=== PATIENT | male | born 1975 | race Caucasian/White ===

== ENCOUNTER 2018-10-20 02:04 | Emergency (ER) | payer MEDICAID ==
[~2018-10-20] VITALS: Ht 170.2 cm; Wt 88.5 kg
[~2018-10-20 02:04] MED LIST: CEPH500 PO; HYDACE5 PO; HYDR1TAB94 PO; IBUP600 PO; LISI20 PO
== END 2018-10-20 03:02 | disposition home or self-care (01) ==
LOC: ER 02:04
DX: J02.0 Streptococcal pharyngitis (principal); Z87.891 Personal history of nicotine dependence; Z79.899 Other long term (current) drug therapy
CPT/HCPCS: 87430; 96372; 99282-25; J0561; J1100

== ENCOUNTER 2018-12-08 21:14 | Emergency (ER) | payer MEDICAID ==
[~2018-12-08] VITALS: Ht 172.7 cm; Wt 90.7 kg
[2018-12-08 22:31] LABS: BASOPHILS ABSOLUTE AUTO 0.08 K/mm3 (0.00-0.23); BASOPHILS PERCENT AUTO 1 % (0-2); EOSINOPHILS ABSOLUTE AUTO 0.61 K/mm3 (0.00-0.68); EOSINOPHILS PERCENT AUTO 4 % (0-6); Hematocrit 42.2 % (37.0-53.0); Hemoglobin 14.3 g/dL (13.5-17.5); IMMATURE GRAN ABSOLUTE AUTO 0.15 K/mm3 (0.00-0.10); IMMATURE GRAN PERCENT AUTO 1 % (0-1); LYMPHOCYTES ABSOLUTE AUTO 3.65 K/mm3 (0.84-5.20); LYMPHOCYTES PERCENT AUTO 24 % (21-46); MONOCYTES ABSOLUTE AUTO 0.85 K/mm3 (0.16-1.47); MONOCYTES PERCENT AUTO 6 % (4-13); Mean Corpuscular HGB 29.9 pg (26.0-34.0); Mean Corpuscular HGB Conc 33.9 g/dL (31.5-36.5); Mean Corpuscular Volume 88 fL (80-100); Mean Platelet Volume 10.6 fL (9.1-12.4); NEUTROPHILS ABSOLUTE AUTO 10.19 K/mm3 (1.96-9.15); NEUTROPHILS PERCENT AUTO 66 % (41-73); Platelet Count 246 K/mm3 (150-400); RDW Coefficient Variation 12.6 % (11.7-14.2); RDW Standard Deviation 41.3 fL (35.1-46.3); Red Blood Cell Count 4.79 M/mm3 (4.30-5.90); White Blood Cell Count 15.53 K/mm3 (4.00-11.30)
[2018-12-08 22:50] LABS: Alanine Aminotransfer (ALT/SGP 24 U/L (12-78); Albumin, Blood 3.3 g/dL (3.4-5.0); Albumin/Globulin Ratio 0.8 (0.8-1.8); Alk Phos 99 U/L (50-136); Anion Gap 6 mmol/L (6-16); Aspartate Aminotrans (AST/SGOT 12 U/L (12-37); Bilirubin, Total 0.7 mg/dL (0.1-1.0); Blood Urea Nitrogen 24 mg/dL (8-24); Bun/Creatinine Ratio 28.4 (12.0-20.0); CO2, Blood 30 mmol/L (21-32); Calcium, Blood 8.8 mg/dL (8.5-10.1); Chloride, Blood 103 mmol/L (98-108); Creatinine, Blood 0.84 mg/dL (0.60-1.20); Globulin, Blood 4.1 g/dL (2.2-4.0); Glomerular Filtration Rate >60 (60-); Glucose, Blood 121 mg/dL (70-99); Potassium, Blood 3.8 mmol/L (3.5-5.5); Sodium, Blood 139 mmol/L (136-145); Total Protein, Blood 7.4 g/dL (6.4-8.2)
[2018-12-08] MEDS ORDERED: Augmentin 875-1 EACH PO (23:44)
== END 2018-12-09 00:44 | disposition home or self-care (01) ==
LOC: ER 21:14
PROVIDERS: Physician Assistant
DX: J36 Peritonsillar abscess (principal); I10 Essential (primary) hypertension; Z79.899 Other long term (current) drug therapy
CPT/HCPCS: 10160; 36415; 70491; 80053; 85025; 87081; 87430; 96365-59; 96375-59; 99284-25; A9270-GY; J0295; J1100; J1170; J1885; J2405; Q9967

== ENCOUNTER 2021-04-24 20:34 | Emergency (ER) | payer SELFPAY ==
[~2021-04-24] VITALS: Ht 170.2 cm; Wt 99.8 kg
[~2021-04-24 20:34] MED LIST changes: +Augmentin 875-1 EACH PO
== END 2021-04-24 22:08 | disposition home or self-care (01) ==
LOC: ER 20:34
DX: K42.9 Umbilical hernia without obstruction or gangrene (principal); I10 Essential (primary) hypertension; Z79.899 Other long term (current) drug therapy
CPT/HCPCS: 76857; 99283-25

== ENCOUNTER 2021-04-27 12:17 | Inpatient (IN) | payer SELFPAY ==
[~2021-04-27] VITALS: Ht 170.2 cm; Wt 99.8 kg
[2021-04-27 12:53] LABS: BASOPHILS ABSOLUTE AUTO 0.08 K/mm3 (0.00-0.23); BASOPHILS PERCENT AUTO 1 % (0-2); EOSINOPHILS PERCENT AUTO 3 % (0-6); Hematocrit 48.5 % (37.0-53.0); Hemoglobin 16.7 g/dL (13.5-17.5); IMMATURE GRAN PERCENT AUTO 1 % (0-1); LYMPHOCYTES ABSOLUTE AUTO 3.11 K/mm3 (0.84-5.20); LYMPHOCYTES PERCENT AUTO 26 % (21-46); MONOCYTES ABSOLUTE AUTO 0.43 K/mm3 (0.16-1.47); MONOCYTES PERCENT AUTO 4 % (4-13); Mean Corpuscular HGB 29.1 pg (26.0-34.0); Mean Corpuscular HGB Conc 34.4 g/dL (31.5-36.5); Mean Corpuscular Volume 85 fL (80-100); Mean Platelet Volume 11.5 fL (9.1-12.4); NEUTROPHILS ABSOLUTE AUTO 7.65 K/mm3 (1.96-9.15); NEUTROPHILS PERCENT AUTO 65 % (41-73); Platelet Count 195 K/mm3 (150-400); Red Blood Cell Count 5.73 M/mm3 (4.30-5.90); White Blood Cell Count 11.77 K/mm3 (4.00-11.30)
[2021-04-27 13:10] LABS: Alanine Aminotransfer (ALT/SGP 81 U/L (12-78); Albumin, Blood 3.3 g/dL (3.4-5.0); Albumin/Globulin Ratio 0.7 (0.8-1.8); Alk Phos 189 U/L (50-136); Anion Gap 5 mmol/L (6-16); Aspartate Aminotrans (AST/SGOT 49 U/L (12-37); Bilirubin, Total 0.7 mg/dL (0.1-1.0); Blood Urea Nitrogen 12 mg/dL (8-24); Bun/Creatinine Ratio 14.1 (12.0-20.0); CO2, Blood 30 mmol/L (21-32); Chloride, Blood 96 mmol/L (98-108); Creatinine, Blood 0.85 mg/dL (0.60-1.20); Globulin, Blood 4.5 g/dL (2.2-4.0); Glomerular Filtration Rate >60 (60-); Glucose, Blood 488 mg/dL (70-99); Sodium, Blood 131 mmol/L (136-145); Total Protein, Blood 7.8 g/dL (6.4-8.2); Troponin I 0.318 ng/mL (0.000-0.040)
[2021-04-27 13:21] LABS: CHOL/HDL RATIO 5.8; Cholesterol 220 mg/dL (50-200); HDL Cholesterol 38 mg/dL (>39); LDL/HDL RATIO 3.3; Low Density Lipoprotein Chol 124 mg/dL (0-110); Magnesium, Blood 2.4 mg/dL (1.6-2.4); Triglycerides 290 mg/dL (30-160); Very Low Density Lipoprot Chol 58 mg/dL (6-32)
[2021-04-27 13:35] LABS: PCO2 Arterial 29.7 mmHg (35-45); PO2 Arterial 146 mmHg (80-100); pH Blood Arterial 7.39 (7.35-7.45)
[2021-04-27 13:55] LABS: SARS-Cov-2 (COVID-19) PCR, MMC NEGATIVE (NEGATIVE)
[2021-04-27 14:42] LABS: BASOPHILS ABSOLUTE AUTO 0.08 K/mm3 (0.00-0.23); BASOPHILS PERCENT AUTO 1 % (0-2); EOSINOPHILS ABSOLUTE AUTO 0.35 K/mm3 (0.00-0.68); EOSINOPHILS PERCENT AUTO 3 % (0-6); Hematocrit 45.5 % (37.0-53.0); Hemoglobin 15.5 g/dL (13.5-17.5); IMMATURE GRAN PERCENT AUTO 1 % (0-1); LYMPHOCYTES ABSOLUTE AUTO 3.16 K/mm3 (0.84-5.20); LYMPHOCYTES PERCENT AUTO 27 % (21-46); MONOCYTES ABSOLUTE AUTO 0.34 K/mm3 (0.16-1.47); MONOCYTES PERCENT AUTO 3 % (4-13); Mean Corpuscular HGB 28.6 pg (26.0-34.0); Mean Corpuscular HGB Conc 34.1 g/dL (31.5-36.5); Mean Corpuscular Volume 84 fL (80-100); NEUTROPHILS ABSOLUTE AUTO 7.62 K/mm3 (1.96-9.15); NEUTROPHILS PERCENT AUTO 65 % (41-73); Platelet Count 212 K/mm3 (150-400); RDW Coefficient Variation 13.2 % (11.7-14.2); RDW Standard Deviation 40.2 fL (35.1-46.3); Red Blood Cell Count 5.42 M/mm3 (4.30-5.90); White Blood Cell Count 11.65 K/mm3 (4.00-11.30)
[2021-04-27 14:56] LABS: International Normalized Ratio 1.12; Prothrombin Time Results 11.7 Sec (9.7-11.5)
[2021-04-27 15:16] LABS: Anion Gap 5 mmol/L (6-16); Blood Urea Nitrogen 11 mg/dL (8-24); Bun/Creatinine Ratio 13.3 (12.0-20.0); CO2, Blood 28 mmol/L (21-32); Calcium, Blood 8.6 mg/dL (8.5-10.1); Chloride, Blood 100 mmol/L (98-108); Creatinine, Blood 0.83 mg/dL (0.60-1.20); Glomerular Filtration Rate >60 (60-); Glucose, Blood 351 mg/dL (70-99); Potassium, Blood 4.7 mmol/L (3.5-5.5); Sodium, Blood 133 mmol/L (136-145)
[2021-04-27 15:39] LABS: CPK Creatine Kinase 1368 U/L (39-308)
[2021-04-27 15:53] LABS: Creatine Kinase MB 106.9 ng/mL (0.0-3.6); Creatine Kinase MB Index 7.8 (0.0-4.0)
--- NOTE | 2021-04-27 15:59 | NUR ---
ARRIVAL TO ICU PT ARRIVES AT 1410 POST ANGIOGRAM FOR POSSIBLE STEMI. NO STENT PLACED, THROMBUS, ANGIOSEAL TO RIGHT GROIN, AGGRASTAT INFUSING AT 0.15 MCG/KG/MIN. REPORT AND SITE CHECKED felicita GARCÍA RN. AT 1430, HEMATOMA NOTED. PRESSURE APPLIED, SKIDDER NOTIFIED, DR ALBERT CALLED, AGGRASTAT PLACED ON STANDBY, PLAN TO RESTART 2 [address] ALBERT ROUNDED, CONTINUING TO HOLD PRESSURE. PRESSURE DRESSING PLACED BY ROSSANA AT 1545. WILL RESTART AGGRASTAT AT 1745. PT TO REMAIN SUPINE. FLAT AFFECT. RELUCANT TO ANSWER QUESTIONS. REPORTS NO MEDICAL HX, HAS NOT SEEN PCP IN YEARS. OCCASIONAL METH USE. LUNGS CLEAR. ABD ROUND, SOFT, NON TENDER. BT X 4. PT P/W/D. HEMATOMA TO RIGHT GROIN MARKED, COLOR RETURNED TO RIGHT LEG. PULSES PALPABLE. EKG DONE. BP STABLE. WILL CONTINUE TO MONITOR.
--- NOTE | 2021-04-27 18:02 | NUR ---
SHIFT SUMMARY NO ACUTE CHANGE. PRESSURE DRESSING REMAINS ON RIGHT GROIN. NO FURTHER BLEEDING AT THIS TIME. RESTARTED AGGRASTAT AT [address] ALBERT ORDER AT 0.15 MCG/KG/MIN. NS INFUSING AT 125 ML/HR. HTN NOTED. WILL CONTINUE TO MONITOR UNTIL REPORT TO ONCOMING NURSE.
--- NOTE | 2021-04-27 20:45 | NUR ---
DR ALBERT CALLED FOR ORDER CLARIFICATION. WILL CALL IN HOSPITALIST CONSULT.
--- NOTE | 2021-04-27 21:00 | NUR ---
R GROIN SITE WNL. PRESSURE DRESSING REMAINS.
--- NOTE | 2021-04-27 23:00 | NUR ---
R GROIN SITE WNL. PRESSURE DRESSING CHANGED. PT SLEEPING, DENIES CP.
[2021-04-27 23:07] LABS: Troponin I 69.7 ng/mL (0.000-0.040)
[2021-04-27 23:27] LABS: Creatine Kinase MB 113.7 ng/mL (0.0-3.6); Creatine Kinase MB Index 9.7 (0.0-4.0)
--- NOTE | 2021-04-28 03:04 | NUR ---
R GROIN SITE WNL. PT STATES HIS BACK PAIN IS BETTER WITH THE KPAD, BUT HE IS TOO HOT NOW, SOP SET ASIDE.
--- NOTE | 2021-04-28 06:39 | NUR ---
PT REMAINS STABLE OVERNIGHT. R GROING SITE UNCHANGED, PRESSURE DRESSING REMOVED, TEGADERM IN PLACE. PT DENIES CP ALL NIGHT, BUT C/O SORE BACK FROM LAYING IN BED, RESOLVED WITH BACK RUB AND KPAD. PT HAS SPO2 >95% ON RA, EXCEPT ONE EPISODE OF APNEA WHILE SLEEPING DEEPLY. PT IS ANXIOUS TO GO HOME. NEEDS COVID VACCINE PER DR ALBERT. WILL CONTINUE TO MONITOR AND REPORT TO ONCOMING SHIFT.
[2021-04-28 07:23] LABS: BASOPHILS ABSOLUTE AUTO 0.04 K/mm3 (0.00-0.23); BASOPHILS PERCENT AUTO 0 % (0-2); EOSINOPHILS ABSOLUTE AUTO 0.38 K/mm3 (0.00-0.68); EOSINOPHILS PERCENT AUTO 3 % (0-6); Hematocrit 44.7 % (37.0-53.0); Hemoglobin 15.1 g/dL (13.5-17.5); IMMATURE GRAN ABSOLUTE AUTO 0.13 K/mm3 (0.00-0.10); IMMATURE GRAN PERCENT AUTO 1 % (0-1); LYMPHOCYTES ABSOLUTE AUTO 2.83 K/mm3 (0.84-5.20); LYMPHOCYTES PERCENT AUTO 23 % (21-46); MONOCYTES ABSOLUTE AUTO 0.45 K/mm3 (0.16-1.47); MONOCYTES PERCENT AUTO 4 % (4-13); Mean Corpuscular HGB 28.8 pg (26.0-34.0); Mean Corpuscular HGB Conc 33.8 g/dL (31.5-36.5); Mean Corpuscular Volume 85 fL (80-100); NEUTROPHILS ABSOLUTE AUTO 8.43 K/mm3 (1.96-9.15); NEUTROPHILS PERCENT AUTO 69 % (41-73); Platelet Count 194 K/mm3 (150-400); RDW Coefficient Variation 13.4 % (11.7-14.2); RDW Standard Deviation 41.7 fL (35.1-46.3); Red Blood Cell Count 5.24 M/mm3 (4.30-5.90); White Blood Cell Count 12.26 K/mm3 (4.00-11.30)
[2021-04-28 07:50] LABS: Albumin, Blood 2.6 g/dL (3.4-5.0); Anion Gap 6 mmol/L (6-16); Blood Urea Nitrogen 12 mg/dL (8-24); Bun/Creatinine Ratio 16.8 (12.0-20.0); CHOL/HDL RATIO 5.3; CO2, Blood 26 mmol/L (21-32); Calcium, Blood 8.2 mg/dL (8.5-10.1); Chloride, Blood 105 mmol/L (98-108); Cholesterol 174 mg/dL (50-200); Creatinine, Blood 0.71 mg/dL (0.60-1.20); Glomerular Filtration Rate >60 (60-); Glucose, Blood 220 mg/dL (70-99); HDL Cholesterol 33 mg/dL (>39); Low Density Lipoprotein Chol 98 mg/dL (0-110); Phosphorus, Blood 2.5 mg/dL (2.5-4.9); Potassium, Blood 4.1 mmol/L (3.5-5.5); Sodium, Blood 137 mmol/L (136-145); Triglycerides 213 mg/dL (30-160); Very Low Density Lipoprot Chol 42 mg/dL (6-32)
[2021-04-28 08:28] LABS: Creatine Kinase MB 61.1 ng/mL (0.0-3.6)
[2021-04-28 08:29] LABS: Creatine Kinase MB Index 8.7 (0.0-4.0)
--- NOTE | 2021-04-28 09:27 | NUR ---
CARE OF PT ASSUMED AT 0700. PT AWAKE IN BED WATCHING TV. R GROIN ASSESSED W NOCT RN, SITE SOFT W/O HEMATOMA, BLEEDING. PT ON AGGRESTAT GTT AT 18.5MLS/HR UNTIL 1145 (THIS DOSE CONFIRMED W PHARMACY BASED ON 103KG WEIGHT). PT DENIES C/O CHEST PAIN/CHEST PRESSURE. PT VERY ANXIOUS, STATES, "I DONT KNOW IF I CAN STAY ANOTHER NIGHT HERE BY MYSELF". PT HYPERTENSIVE THIS AM, BUT BP [id number] AFTER AM LABS. DR ALBERT AT BEDSIDE THIS AM AND GIVEN FULL UPDATE, LABS REVIEWED. LETTY AT BEDSIDE THIS AM WELL.
--- NOTE | 2021-04-28 11:46 | NUR ---
R GROIN SITE REMAINS STABLE. PT C/O HEADACHE 11/02, TYLENOL GIVEN. PT RESTLESS AND TEARFUL IN BED. PT ATTEMPTED TO CALL HIS DAUGHTER AND WAS NOT ABLE TO CONTACT HER. PT STATES HE IS AFRAID, ATTEMPTED TO COMFORT PT. AGGRESTAT TURNED OFF IT HAS BEEN RUNNING FOR 18HRS.
--- NOTE | 2021-04-28 11:59 | NUR ---
PT'S BROTHER UPDATED PER PT REQUEST.
--- NOTE | 2021-04-28 13:23 | NUR ---
DR ALBERT CALLED AND UPDATED. OKAY TO DISCHARGE PT HOME 2HRS AFTER COVID VACCINE PER DR ALBERT. DR LOPES NOTIFIED, HE WILL PLACE DISCHARGE ORDERS.
[2021-04-28] MEDS ORDERED: CARV3.125 PO (14:50)
[2021-04-28] MEDS ORDERED: ATOR40TA PO (14:50)
[2021-04-28] MEDS ORDERED: NITR.4SL SL (14:51)
[2021-04-28] MEDS ORDERED: LISI5 PO (14:51)
[2021-04-28] MEDS ORDERED: ASPI81CH PO (14:51)
[2021-04-28] MEDS ORDERED: CLOP75 PO (14:52)
[2021-04-28] MEDS ORDERED: METF500 PO (14:52)
[2021-04-28 15:23] LABS: Anion Gap 5 mmol/L (6-16); Blood Urea Nitrogen 14 mg/dL (8-24); Bun/Creatinine Ratio 14.6 (12.0-20.0); CO2, Blood 27 mmol/L (21-32); Calcium, Blood 8.6 mg/dL (8.5-10.1); Chloride, Blood 103 mmol/L (98-108); Creatinine, Blood 0.96 mg/dL (0.60-1.20); Glomerular Filtration Rate >60 (60-); Glucose, Blood 260 mg/dL (70-99); Potassium, Blood 3.9 mmol/L (3.5-5.5); Sodium, Blood 135 mmol/L (136-145)
--- NOTE | 2021-04-28 15:44 | NUR ---
PT GIVEN GERARD VACCINE FOR COVID-19 AT 1500 WITH NO ADVERSE REACTION NOTED. VERBAL AND WRITTEN DISCHARGE INFO GIVEN TO PT W CLEAR UNDERSTANDING. DC INSTRUCTIONS SENT ON FEM ACCESS, [facility] CONTACT REVEIWED. MEDICATIONS REVIEWED. FOLLOW UP APPOINTMENT MADE FOR PT. NEW RX'S SENT TO [facility] PER PT REQUEST. CLOSURE ANGIOSEAL CARD AND VACCINE CARD GIVEN TO PT.
--- NOTE | 2021-04-28 16:36 | NUR ---
PT DISCHARGED IN CARE OF FAMILY AT 1630 IN STABLE CONDITION.
[2021-05-07 08:10] LABS: 7-AMINOCLONAZEPAM Negative (.); ALPRAZOLAM Negative (.); BENZODIAZEPINES CONFIRM Positive (.); CHLORDIAZEPOXIDE Negative (.); CLONAZEPAM Negative (.); DESALKYLFLURAZEPAM Negative (.); DESMETHYLCHLORDIAZEPOXIDE Negative (.); DESMETHYLDIAZEPAM Negative (.); DIAZEPAM Negative (.); FLURAZEPAM Negative (.); LORAZEPAM Negative (.); MIDAZOLAM 36.3 ng/mL (.); OXAZEPAM Negative (.); TEMAZEPAM Negative (.); TRIAZOLAM Negative (.)
[2021-05-07 09:10] LABS: AMPHETAMINE 28 ng/mL (.); AMPHETAMINES CONFIRMATION Positive (.); MDA Negative (.); MDEA Negative (.); MDMA Negative (.); METHAMPHETAMINE 145 ng/mL (.)
== END 2021-04-28 16:32 | disposition home or self-care (01) | DRG 281 ==
LOC: ER 12:17 → ICUE 12:40 → ICUW 12:40 → ICUE 14:16
PROVIDERS: Emergency Medicine; Internal Medicine; ADMIT Internal Medicine Cardiovascular Disease
PROC: 4A023N7 Measurement of Cardiac Sampling and Pressure, Left Heart, Percutaneous Approach (ICD-10-PCS; 2021-04-27)
PROC: B211YZZ Fluoroscopy of Multiple Coronary Arteries using Other Contrast (ICD-10-PCS; 2021-04-27)
PROC: 3E07317 Introduction of Other Thrombolytic into Coronary Artery, Percutaneous Approach (ICD-10-PCS; 2021-04-27)
PROC: XW023U6 Introduction of COVID-19 Vaccine into Muscle, Percutaneous Approach, New Technology Group 6 (ICD-10-PCS; principal; 2021-04-28)
DX: I21.09 ST elevation (STEMI) myocardial infarction involving other coronary artery of anterior wall (principal); M62.82 Rhabdomyolysis; Z20.822 Contact with and (suspected) exposure to COVID-19; I25.10 Atherosclerotic heart disease of native coronary artery without angina pectoris; I10 Essential (primary) hypertension; K42.9 Umbilical hernia without obstruction or gangrene; F15.10 Other stimulant abuse, uncomplicated; E11.9 Type 2 diabetes mellitus without complications; D72.829 Elevated white blood cell count, unspecified; E78.5 Hyperlipidemia, unspecified; E66.9 Obesity, unspecified; Z23 Encounter for immunization; Z68.34 Body mass index [BMI] 34.0-34.9, adult; Z79.899 Other long term (current) drug therapy
CPT/HCPCS: 36415; 71045; 71046; 80048; 80053; 80061; 80069; 82550; 82553; 82803; 82947; 83036; 83735; 83880; 84484; 85025; 85347; 85610; 85730; 86141; 86592; 86850; 86900; 86901; 91303; 92941; 93005; 93010; 93306; 93458; 96374; 99152; 99153; 99285-25; A9270; C1760; C1769; C1887; C1894; J0461; J1644; J1815; J2250; J2405; J3010; J3246; J7030; J7050; Q9967; U0004

== ENCOUNTER 2023-11-17 16:26 | Inpatient (IN) | payer OTHER ==
[~2023-11-17] VITALS: Ht 170.2 cm; Wt 95.5 kg
[~2023-11-17 16:26] MED LIST changes: +ASPI81CH PO; +ATOR40TA PO; +CARV3.125 PO; +CLOP75 PO; +LISI5 PO; +METF500 PO; +NITR.4SL SL
[2023-11-17 16:53] LABS: BASOPHILS ABSOLUTE AUTO 0.07 K/mm3 (0.00-0.23); BASOPHILS PERCENT AUTO 1 % (0-2); EOSINOPHILS ABSOLUTE AUTO 0.34 K/mm3 (0.00-0.68); EOSINOPHILS PERCENT AUTO 3 % (0-6); Hematocrit 45.3 % (37.0-53.0); Hemoglobin 15.4 g/dL (13.5-17.5); IMMATURE GRAN ABSOLUTE AUTO 0.08 K/mm3 (0.00-0.10); IMMATURE GRAN PERCENT AUTO 1 % (0-1); LYMPHOCYTES PERCENT AUTO 26 % (21-46); MONOCYTES ABSOLUTE AUTO 0.63 K/mm3 (0.16-1.47); MONOCYTES PERCENT AUTO 5 % (4-13); Mean Corpuscular HGB 28.6 pg (26.0-34.0); Mean Corpuscular Volume 84 fL (80-100); Mean Platelet Volume 10.3 fL (9.1-12.4); NEUTROPHILS ABSOLUTE AUTO 8.89 K/mm3 (1.96-9.15); NEUTROPHILS PERCENT AUTO 66 % (41-73); Platelet Count 216 K/mm3 (150-400); RDW Coefficient Variation 13.9 % (11.7-14.2); RDW Standard Deviation 42.8 fL (35.1-46.3); Red Blood Cell Count 5.38 M/mm3 (4.30-5.90); White Blood Cell Count 13.51 K/mm3 (4.00-11.30)
[2023-11-17] MEDS ORDERED: FentaNYL Citrate 50 MCG/ML 2 ML Injection IV ONE (17:55)
[2023-11-17] MEDS ORDERED: Ondansetron HCl 2 MG / ML 2ML Vial IV ONE (18:00)
[2023-11-17 18:28] LABS: Albumin, Blood 3.8 g/dL (3.4-5.0); Bilirubin, Total 0.7 mg/dL (0.1-1.0); Bun/Creatinine Ratio 13.7 (12.0-20.0); Calcium, Blood 9.4 mg/dL (8.5-10.1); Creatinine, Blood 1.02 mg/dL (0.60-1.20); Globulin, Blood 3.8 g/dL (2.2-4.0); Potassium, Blood 4.3 mmol/L (3.5-5.5); Total Protein, Blood 7.6 g/dL (6.4-8.2)
[2023-11-17] MEDS ORDERED: BUSPIRONE HCL30 M1 PO (18:48)
[2023-11-17 18:54] LABS: Anti-Xa UFH, PHA Monitoring <0.10 IU/mL; International Normalized Ratio 1.01; Prothrombin Time Results 10.8 Sec (9.7-11.5)
[2023-11-17] MEDS ORDERED: Labetalol HCL 5 MG/ML 4ML Injection (Single Dose) IV PRN (19:25)
[2023-11-17] MEDS ORDERED: Heparin Sodium 5000 Units/ML 1ML MDV IV ONE (19:25)
[2023-11-17] MEDS ORDERED: Acetaminophen 325 MG TABLET PO PRN (19:25)
[2023-11-17] MEDS ORDERED: Heparin Sodium,Porcine/0.5 NS 500 ML IV SCH (19:25)
[2023-11-17] MEDS ORDERED: Ondansetron HCl 2 MG / ML 2ML Vial IV PRN (19:30)
[2023-11-17] MEDS ORDERED: NS 1,000 ML IV SCH (19:35)
[2023-11-17] MEDS ORDERED: Carvedilol 3.125 MG Tab PO SCH (20:00)
[2023-11-17] MEDS ORDERED: Nitroglycerin 1 INCH/GM PKT TOP ONE (20:00)
[2023-11-17 20:35] VITALS: BP 119/90
[2023-11-17] MEDS ORDERED: Atorvastatin 40 MG Tab PO SCH (21:00)
[2023-11-17] MEDS ORDERED: BusPIRone HCl 10 MG Tab PO SCH (21:00)
[2023-11-18] VITALS (12 sets, daily range): BP systolic 96–146; BP diastolic 51–99
[2023-11-18 03:55] LABS: Hematocrit 42.4 % (37.0-53.0); Hemoglobin 14.2 g/dL (13.5-17.5); Mean Corpuscular HGB 28.7 pg (26.0-34.0); Mean Corpuscular HGB Conc 33.5 g/dL (31.5-36.5); Mean Corpuscular Volume 86 fL (80-100); Platelet Count 194 K/mm3 (150-400); RDW Standard Deviation 43.7 fL (35.1-46.3); Red Blood Cell Count 4.94 M/mm3 (4.30-5.90); White Blood Cell Count 11.98 K/mm3 (4.00-11.30)
[2023-11-18] MEDS ORDERED: Dose Adjust by Pharmacy XX STA ×2 (04:14→11:54)
[2023-11-18] MEDS ORDERED: Heparin Sodium 5000 Units/ML 1ML MDV IV ONE (04:15)
[2023-11-18 04:19] LABS: Bun/Creatinine Ratio 15.8 (12.0-20.0); Calcium, Blood 8.8 mg/dL (8.5-10.1); Creatinine, Blood 1.01 mg/dL (0.60-1.20); Magnesium, Blood 2.2 mg/dL (1.6-2.4); Potassium, Blood 4.5 mmol/L (3.5-5.5)
--- NOTE | 2023-11-18 06:46 | NUR ---
SHIFT SUMMARY PATIENT ARRIVED TO PCU 15 VIA STRETCHER. PATIENT IS ALERT AND ORIENTED X4, ABLE TO SELF TRANSFER TO THE BED. ARRIVED TO THE UNIT WITH 8/10 CHEST PAIN, NITRO PASTE APPLIED PER EMAR. PATIENT ON ROOM AIR, DENIES SHORTNESS OF BREATH. VITAL SIGNS STABLE, SINUS RHYTHM ON TELE. NO ACUTE ISSUES NOTED OVERNIGHT. WILL CONTINUE TO MONITOR. CALL LIGHT WITHIN REACH.
[2023-11-18 07:37] LABS: U Amphetamine Screen Not Detected; U Barbituate Screen Not Detected; U Benzodiazapine Screen Not Detected; U Buprenorphine Screen Not Detected; U Cannabinoids Screen Not Detected; U Cocaine Screen Not Detected; U Methadone Screen Not Detected; U Methamphetamine Screen Not Detected; U Opiates Screen Not Detected; U Oxycodone Screen Not Detected; U Phencyclidine Screen Not Detected
[2023-11-18] MEDS ORDERED: Aspirin 81 MG Chew PO SCH (09:00)
[2023-11-18] MEDS ORDERED: Lisinopril 5 MG Tab PO SCH (09:00)
[2023-11-18] MEDS ORDERED: Clopidogrel Bisulfate 75 MG Tab PO SCH (09:00)
[2023-11-18] MEDS ORDERED: Verapamil HCL 2.5 MG/ML 2ML Injection ONE (13:16)
[2023-11-18] MEDS ORDERED: NS 1,000 ML IV ONE ×2 (13:17→13:18)
[2023-11-18] MEDS ORDERED: Heparin Sodium 1000 Units/ML 10ML MDV ONE ×3 (13:17→14:20)
[2023-11-18] MEDS ORDERED: Nitroglycerin 2 MG/20 ML BTL ONE (13:17)
[2023-11-18] MEDS ORDERED: NS 250 ML IV ONE (13:17)
--- NOTE | 2023-11-18 13:41 | NUR ---
pt down to heart center at 1337 via hospital bed and on ra. pt family present in room. pharmacy contacted and notified that hep gtt is on standby at this time.
[2023-11-18] MEDS ORDERED: Midazolam HCl 1MG / ML 2ML Vial ONE ×2 (13:51→14:36)
[2023-11-18] MEDS ORDERED: FentaNYL Citrate 50 MCG/ML 2 ML Injection ONE ×2 (13:51→14:36)
[2023-11-18] MEDS ORDERED: Atropine Sulfate 0.1 MG/ML 10ML SYR ONE (14:22)
[2023-11-18] MEDS ORDERED: Phenylephrine HCl 100 MCG/ML-NS 10MLSYR (1MG/10ML) ONE (14:22)
[2023-11-18] MEDS ORDERED: Aspirin 81 MG Chew ONE (14:29)
[2023-11-18] MEDS ORDERED: Clopidogrel Bisulfate 75 MG Tab ONE (14:45)
--- NOTE | 2023-11-18 15:24 | NUR ---
PT ARRIVED FROM [facility] AT 1510. TR BAND IN PLACE ON RIGHT WRIST. SITE C/D/I WITH NO HEMATOMA, SWELLING , OR BLEEDING NOTED. REPORT RECIEVED FROM [facility]ART [facility]ENTER NURSE AT BEDSIDE. PT EDUCATED ON POST PROCEDURE PROTOCOL. PT INSTRUCTED NOT TO BEND HIS WRIST, PT VERBALIZED UNDERSTANDING. PT KIDS PRESENT AT TIME OF ARRIVAL. NO REPORT OF CHEST PAIN/PRESSURE AT TIME OF ARRIVAL. PT PROVIDED SNACKS AND DRINK FROM [facility] UPON REQUEST OF PT.
[2023-11-18] MEDS ORDERED: NS 1,000 ML IV SCH (15:45)
[2023-11-18] MEDS ORDERED: Insulin Human Lispro 100 Units/ML 3ML Syringe SC SCH ×2 (16:30)
--- NOTE | 2023-11-18 17:48 | NUR ---
SHIFT SUMMARY PT A/OX4 AND COOPERATIVE OF CARE. PT ABLE TO EXPRESS NEEDS AND CALLS APPROPIATE. PT BP'S SOFT AT BEGINNING OF SHIFT RANGING 90-100'S, POST PRECEDURE BP'S 130-140'S. PT OTHER VSS THROUGHOUT SHIFT WIT O2 SATS IN THE 90'S ON RA. PT REPORTED CHEST PAIN BEFORE PROCEDURE, NONE REPORTED WHEN PT RETURNED FROM PROCEDURE. PT BEGAN TO STATE THAT SLIGHT CHEST PAIN 2/10 PRESENT AFTER "MEDS WORE OFF." AFTER PROCEDURE, PT INSTRUCTED TO LET STAFF KNOW WHEN HE NEEDS TO GET UP, PT INDEPENDENTLY USING RESTROOM. PT EDUCATED ON FALL RISKS AND BLEEDING RISK AT ANGIO SITE. PT REPORTS THAT HE CAPABLE OF AMBULATING WITHOUT ASSISTANCE. ARM BOARD REMAINS IN PLACE.
[2023-11-18] MEDS ORDERED: Nitroglycerin 0.4 MG SUBL SL PRN (20:20)
[2023-11-18] MEDS ORDERED: Nitroglycerin Patch 0.4 MG / HR TOP ONE (21:15)
--- NOTE | 2023-11-18 21:45 | NUR ---
PHYSICIAN COMMUNICATION CONTACTED DR HAWTHORNE AT 2017 TO NOTIFY HIM THAT THE PATIENT WAS COMPLAINING OF 6/10 CHEST PAIN THAT WAS WORSE WHEN LYING ON HIS LEFT SIDE. HE ORDERED FOR THE PATIENT TO BE GIVEN SUBLINGUAL NITRO, TO GET AND EKG, AND STAT TROPONIN. AT [address] HAWTHORNE THE RESULTS OF THE EKG AND DR HAWTHORNE ORDERED A NITRO PATCH 0.4.
[2023-11-19 04:32] VITALS: BP 116/79
[2023-11-19 04:43] LABS: BASOPHILS ABSOLUTE AUTO 0.06 K/mm3 (0.00-0.23); BASOPHILS PERCENT AUTO 1 % (0-2); EOSINOPHILS ABSOLUTE AUTO 0.19 K/mm3 (0.00-0.68); EOSINOPHILS PERCENT AUTO 2 % (0-6); Hemoglobin 13.3 g/dL (13.5-17.5); IMMATURE GRAN ABSOLUTE AUTO 0.06 K/mm3 (0.00-0.10); IMMATURE GRAN PERCENT AUTO 1 % (0-1); LYMPHOCYTES ABSOLUTE AUTO 2.73 K/mm3 (0.84-5.20); LYMPHOCYTES PERCENT AUTO 23 % (21-46); MONOCYTES PERCENT AUTO 7 % (4-13); Mean Corpuscular HGB 28.7 pg (26.0-34.0); Mean Corpuscular HGB Conc 34.1 g/dL (31.5-36.5); Mean Corpuscular Volume 84 fL (80-100); Mean Platelet Volume 10.4 fL (9.1-12.4); NEUTROPHILS ABSOLUTE AUTO 8.06 K/mm3 (1.96-9.15); NEUTROPHILS PERCENT AUTO 68 % (41-73); Platelet Count 174 K/mm3 (150-400); RDW Coefficient Variation 13.7 % (11.7-14.2); RDW Standard Deviation 42.5 fL (35.1-46.3); Red Blood Cell Count 4.63 M/mm3 (4.30-5.90)
[2023-11-19 05:07] LABS: Bun/Creatinine Ratio 16.3 (12.0-20.0); Calcium, Blood 8.6 mg/dL (8.5-10.1); Creatinine, Blood 0.98 mg/dL (0.60-1.20); Potassium, Blood 4.2 mmol/L (3.5-5.5)
--- NOTE | 2023-11-19 06:23 | NUR ---
SHIFT SUMMARY PATIENT ALERT AND ORIENTED X4. INDEPENDENT IN HIS ROOM. HAS HAD NO ADDITIONAL CHEST PAIN SINCE HAVING THE NITRO PATCH PLACED. CONTINUES ON ROOM AIR. VITAL SIGNS STABLE, NO EVENTS ON TELE. NO BLEEDING OR BRUSING NOTED AT RIGHT RADIAL SITE, ARM BOARD IN PLACE. WILL CONTINUE TO MONITOR. CALL LIGHT WITHIN REACH.
[2023-11-19 07:46] VITALS: BP 123/80; BP 13/80
[2023-11-19] MEDS ORDERED: Furosemide 10 MG / ML 2ML Vial IV ONE (10:00)
[2023-11-19] MEDS ORDERED: Acetaminophen650 M1 PO (11:24)
[2023-11-19] MEDS ORDERED: FURO20 PO (11:26)
[2023-11-19 12:13] VITALS: BP 100/72
--- NOTE | 2023-11-19 12:28 | NUR ---
DICHARGE SUMMARY DISCHARGE INSRTUCTIONS GONE OVER AND GIVEN TO PATIENT AND DAUGHTER AT 1225 BY THIS STUDENT RN AND YARY RN. PT LEFT AT 1225 AND REQUESTED TO WALK OUT. TOLERATED WELL. TR BAND WAS COVERED AND PERSONAL BELONGINGS WITH PT. ARMBOARD IN PLACE DURING DC, PT VERBALIZED UNDERSTANDING. STENT CARDS WITH PT DAUGHTER AT TIMEOG DC. MEDICATION LIST GIVEN WITH INSTRUCTIONS, PT VERBALIZED UNDERSTANDING.
--- NOTE | 2023-11-19 12:47 | NUR ---
THIS RN OVERSAW AND ASSISTED STUDENT RN WITH DISCHARGE INSTRUCTIONS. STENT CARD, DISCHARGE PACKET, AND PERSONAL BELONGINGS WITH PT AT TIME OF DISCHARGE.
[2023-11-19] MEDS ORDERED: Carvedilol 6.25 MG Tab PO SCH (17:00)
[2023-11-19] MEDS ORDERED: Atorvastatin 40 MG Tab PO SCH (21:00)
== END 2023-11-19 12:37 | disposition home or self-care (01) | DRG 322 ==
LOC: ER 16:26 → PCU 19:15
PROVIDERS: Emergency Medicine; Internal Medicine; Nurse Practitioner; Nurse Practitioner Acute Care; Pharmacist; ADMIT Internal Medicine
PROC: 027034Z Dilation of Coronary Artery, One Artery with Drug-eluting Intraluminal Device, Percutaneous Approach (ICD-10-PCS; principal; 2023-11-18)
PROC: B2111ZZ Fluoroscopy of Multiple Coronary Arteries using Low Osmolar Contrast (ICD-10-PCS; 2023-11-18)
DX: I21.4 Non-ST elevation (NSTEMI) myocardial infarction (principal); I25.10 Atherosclerotic heart disease of native coronary artery without angina pectoris; E11.9 Type 2 diabetes mellitus without complications; I10 Essential (primary) hypertension; E78.5 Hyperlipidemia, unspecified; F15.10 Other stimulant abuse, uncomplicated; F17.220 Nicotine dependence, chewing tobacco, uncomplicated; I25.2 Old myocardial infarction; Z79.82 Long term (current) use of aspirin; Z79.02 Long term (current) use of antithrombotics/antiplatelets; Z79.84 Long term (current) use of oral hypoglycemic drugs; Z79.899 Other long term (current) drug therapy; Z98.61 Coronary angioplasty status
CPT/HCPCS: 36415; 71046; 76937; 80048; 80053; 82947; 83735; 84484; 85025; 85027; 85347; 85520; 85610; 85730; 93005; 93010; 93458; 96374; 96375; 99152; 99153; 99285-25; A9270; C1725; C1769; C1874; C1887; C1894; C8929; C9600; J0461; J1644; J1940; J2250; J2371; J2405; J3010; J7030; J7050; Q9957; Q9967